=== PATIENT | female | born 1985 | race Caucasian/White ===

== ENCOUNTER 2017-09-15 17:50 | Emergency (ER) | payer SELFPAY ==
--- NOTE | 2017-09-15 19:11 | ER ---
Nurse's Notes [facility] Name: Merlene Lawson Age: 32 yrs Sex: Female : 1985 Arrival Date: 09/15/2017 Time: 17:51 Bed 18 Private MD: Diagnosis: Cutaneous abscess of right lower limb Presentation: 09/15 17:52 Presenting complaint: EMS states: called for spider bite to left thigh. Pt reports kb1 started on Wednesday, feeling worse today. Transition of care: patient was not received from another setting of care. Onset of symptoms was September 12, 2017. Care prior to arrival: None. 17:52 Method Of Arrival: EMS: [facility] kb1 17:52 Acuity: ELLY 4 kb1 Triage Assessment: 18:01 General: Appears unkempt, Behavior is restless. Pain: Complains of pain in left upper kb1 thigh. Neuro: Level of Consciousness is awake, alert, obeys commands, Oriented to person, place, time, situation. Cardiovascular: Patient's skin is warm and dry. Respiratory: Airway is patent Respiratory effort is even, unlabored, Respiratory pattern is regular, symmetrical. GI: No signs and/or symptoms were reported involving the gastrointestinal system. GI: Reports nausea. : No signs and/or symptoms were reported regarding the genitourinary system. 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 Screenin:07 Abuse screen: Denies threats or abuse. Nutritional screening: No deficits noted. kb1 Tuberculosis screening: No symptoms or risk factors identified. Fall Risk None identified. Assessment: 18:07 Reassessment: see triage assessment. Derm: Abscess located on left upper thigh is hot kb1 to touch, is red, Pt reports that she was bit by a spider on Wednesday, area began to drain today after opening up area. 19:47 Reassessment: Patient appears in no apparent distress at this time. Patient and/or kb1 family updated on plan of care and expected duration. Pain level reassessed. Patient is alert, oriented x 3, equal unlabored respirations, skin warm/dry/pink. 20:10 Reassessment: Patient appears in no apparent distress at this time. Patient and/or kb1 family updated on plan of care and expected duration. Pain level reassessed. Patient is alert, oriented x 3, equal unlabored respirations, skin warm/dry/pink. Patient states feeling better. Vital Signs: 18:01 BP 125 / 85; Pulse 105; Resp 20; Temp 99.7; Pulse Ox 98% ; Pain 10/10; kb1 19:40 BP 120 / 65; Pulse 98; Resp 20; Pulse Ox 99% ; kb1 ED Course: 17:51 Patient arrived in ED. kb1 17:54 Triage completed. kb1 18:01 Arm band placed on. kb1 18:06 [facility] Azul [facility]-C [facility]. snw 18:06 Slava Schmitt MD is Attending Physician. snw 18:07 Patient has correct armband on for positive identification. Bed in low position. Call kb1 light in reach. 18:07 No provider procedures requiring assistance completed. kb1 19:31 Lou Resendez, RN is Primary Nurse. kb1 19:48 Wound care: to abscess cleaned with hibiclens, bandaid applied to area. kb1 20:24 Patient did not have IV access during this emergency room visit. kb1 Administered Medications: 19:46 Drug: TORadol 60 mg Route: IM; Site: left deltoid; kb1 20:22 Follow up: Response: Pain is decreased kb1 19:46 Drug: Hibiclens 4 % 1 application Route: Topical; Site: left thigh; kb1 19:47 Drug: Doxycycline 100 mg Route: PO; kb1 20:21 Follow up: Response: No adverse reaction kb1 19:47 Drug: Pepcid 20 mg Route: PO; kb1 20:22 Follow up: Response: No adverse reaction kb1 Outcome: 19:11 Discharge ordered by . snw 20:24 Discharged to home ambulatory. kb1 20:24 Condition: improved 20:24 Discharge instructions given to patient, Instructed on discharge instructions, follow up and referral plans. medication usage, Demonstrated understanding of instructions, follow-up care, medications, Prescriptions given X 2. 20:25 Patient left the ED. kb1 Signatures: Raya Azul FNP-C PRODUCT EXAMINER-Lou John, RN RN kb1
--- NOTE | 2017-09-15 19:12 | EDPHYS ---
Physician Documentation [facility] Name: Merlene Lawson Age: 32 yrs Sex: Female : 1985 Arrival Date: 09/15/2017 Time: 17:51 Bed 18 Private MD: ED Physician Slava Schmitt HPI: 09/15 19:09 This 32 yrs old Female presents to ER via EMS with complaints of spider bite. snw 19:09 The patient presents with cellulitis of the right hamstring. Description: The affected snw area is small, moderate sized, well demarcated, draining. Onset: The symptoms/episode began/occurred gradually, 5 day(s) ago, and became persistent. Possible cause(s): unknown. Severity of symptoms: At their worst the symptoms were moderate. It is unknown whether or not the patient has had similar symptoms in the past. It is unknown whether or not the patient has recently seen a physician. 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 ROS: 19:07 Constitutional: Negative for fever, chills, and weight loss, Eyes: Negative for injury, snw pain, redness, and discharge, ENT: Negative for injury, pain, and discharge, Neck: Negative for injury, pain, and swelling, Cardiovascular: Negative for chest pain, palpitations, and edema, Respiratory: Negative for shortness of breath, cough, wheezing, and pleuritic chest pain, Abdomen/GI: Negative for abdominal pain, nausea, vomiting, diarrhea, and constipation, Back: Negative for injury and pain, : Negative for injury, bleeding, discharge, and swelling, MS/Extremity: Negative for injury and deformity, Neuro: Negative for headache, weakness, numbness, tingling, and seizure. 19:07 Skin: Positive for abscess, erythema, of the right leg, area "smells bad". Exam: 19:07 Constitutional: This is a well developed, obese patient who is awake, alert, and in no snw acute distress. Head/Face: Normocephalic, atraumatic. Eyes: Pupils equal round and reactive to light, extra-ocular motions intact. Lids and lashes normal. Conjunctiva and sclera are non-icteric and not injected. Cornea within normal limits. Periorbital areas with no swelling, redness, or edema. ENT: Nares patent. No nasal discharge, no septal abnormalities noted. Tympanic membranes are normal and external auditory canals are clear. Oropharynx with no redness, swelling, or masses, exudates, or evidence of obstruction, uvula midline. Mucous membranes moist. Neck: Trachea midline, no thyromegaly or masses palpated, and no cervical lymphadenopathy. Supple, full range of motion without nuchal rigidity, or vertebral point tenderness. No Meningismus. Chest/axilla: Normal chest wall appearance and motion. Nontender with no deformity. No lesions are appreciated. Cardiovascular: Regular rate and rhythm with a normal S1 and S2. No gallops, murmurs, or rubs. Normal PMI, no JVD. No pulse deficits. Respiratory: Lungs have equal breath sounds bilaterally, clear to auscultation and percussion. No rales, rhonchi or wheezes noted. No increased work of breathing, no retractions or nasal flaring. Abdomen/GI: Soft, non-tender, with normal bowel sounds. No distension or tympany. No guarding or rebound. No evidence of tenderness throughout. Back: No spinal tenderness. No costovertebral tenderness. Full range of motion. MS/ Extremity: Pulses equal, no cyanosis. Neurovascular intact. Full, normal range of motion. Neuro: Awake and alert, GCS 15, oriented to person, place, time, and situation. Cranial nerves II-XII grossly intact. Motor strength 5/5 in all extremities. Sensory grossly intact. Cerebellar exam normal. Normal gait. Psych: Awake, alert, with orientation to person, place and time. Behavior, mood, and affect are within normal limits. 19:07 Skin: Appearance: normal except for affected area, abscess, that is moderate sized, of the right hamstring, with drainage, that is purulent. Vital Signs: 18:01 BP 125 / 85; Pulse 105; Resp 20; Temp 99.7; Pulse Ox 98% ; Pain 10/10; kb1 19:40 BP 120 / 65; Pulse 98; Resp 20; Pulse Ox 99% ; kb1 MDM: 18:06 Patient medically screened. snw 19:01 Data reviewed: vital signs, nurses notes. Data interpreted: Pulse oximetry: on room air snw is 98 %. Interpretation: normal. Counseling: I had a detailed discussion with the patient and/or guardian regarding: the historical points, exam findings, and any diagnostic results supporting the discharge/admit diagnosis. 19:02 Awaiting: pt in bathroom. snw Administered Medications: 19:46 Drug: TORadol 60 mg Route: IM; Site: left deltoid; kb1 20:22 Follow up: Response: Pain is decreased kb1 19:46 Drug: Hibiclens 4 % 1 application Route: Topical; Site: left thigh; kb1 19:47 Drug: Doxycycline 100 mg Route: PO; kb1 20:21 Follow up: Response: No adverse reaction kb1 19:47 Drug: Pepcid 20 mg Route: PO; kb1 20:22 Follow up: Response: No adverse reaction kb1 Disposition: 09/15/17 19:11 Discharged to Home. Impression: Cutaneous abscess of right lower limb. - Condition is Stable. - Discharge Instructions: Abscess, Sitz Bath. - Prescriptions for Doxycycline Hyclate 100 mg Oral Tablet - take 1 tablet by ORAL route every 12 hours; 20 tablet. Diclofenac Sodium 75 mg Oral Tablet Sustained Release - take 1 tablet by ORAL route 2 times per day; 30 tablet. - Work release form, Medication Reconciliation Form, Thank You Letter, Antibiotic Education, Prescription Opioid Use form. - Follow up: Private Physician; When: 2 - 3 days; Reason: Recheck today's complaints, Continuance of care, Re-evaluation by your physician. Follow up: Emergency Department; When: As needed; Reason: Worsening of condition. Addendum: 09/17/2017 07:41 Co-signature as Attending Physician, Slava Schmitt MD I agree with the assessment and w a plan of care. Signatures: Raya Azul, ASTRONAUT MISSION SPECIALIST-C ASTRONAUT MISSION SPECIALIST-Csnw Slava Schmitt MD MD wa Brown, Kristina RN RN kb1
[2017-09-15] MEDS ORDERED: FAMOTIDINE 20 MG TAB ONE (19:36)
[2017-09-15] MEDS ORDERED: KETOROLAC 30 MG/ML INJ ONE (19:36)
[2017-09-15] MEDS ORDERED: DOXYCYCLINE 100 MG CAP PO ONE (19:37)
[2017-09-15 20:31] VITALS: TEMP 99.7
[2017-09-15 20:32] VITALS: BP 120/65; O2SAT 99
== END 2017-09-15 20:24 | disposition home or self-care (01) ==
LOC: ER 17:50
DX: L03.115 Cellulitis of right lower limb (principal); I10 Essential (primary) hypertension; F41.9 Anxiety disorder, unspecified; F32.9 Major depressive disorder, single episode, unspecified; Z88.0 Allergy status to penicillin; Z88.1 Allergy status to other antibiotic agents
CPT/HCPCS: 96372; 99284

== ENCOUNTER 2020-01-26 15:58 | Emergency (ER) | payer SELFPAY ==
--- OUTSIDE RECORDS SUMMARY | 2020-01-26 16:00 | XMS REPORT | Clinical Summary ---
:1985 Author Organization [facility] [facility] Address [address] [place] [id number] Care Team Providers Name Role Phone Asked, Pcp Primary Care Provider Unavailable Allergies No Known Allergies Medications Not on file Active Problems Not on file Social History Tobacco Use Types Packs/Day Years Used Date Never Smoker Smokeless Tobacco: Never Used Sex Assigned at Date Recorded Not on file Job Start Date Occupation Industry Not on file Not on file Not on file Travel History Travel Start Travel End No recent travel history available. 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
[2020-01-26 16:52] LABS: Absolute Lymphocytes (CBC) 1.8 K/uL (0.7-4.9); Basophils % 0.4 % (0-1.3); Hematocrit 35.4 % (36.0-45.0); Lymphocytes % 20.3 % (15.3-44.8); MPV 8.2 fL (7.6-11.3); RBC Red Blood Cell Count 4.37 M/uL (3.86-4.86)
[2020-01-26 16:55] LABS: Barbiturates NEGATIVE (NEGATIVE); Benzodiazepines NEGATIVE (NEGATIVE); Cocaine NEGATIVE (NEGATIVE); METHAMPHETAM POSITIVE (NEGATIVE); Methadone NEGATIVE (NEGATIVE); Opiates NEGATIVE (NEGATIVE); Phencyclidine NEGATIVE (NEGATIVE); THC Cannibis NEGATIVE (NEGATIVE)
[2020-01-26 16:55] LABS: Protime INR 1.01
[2020-01-26 16:58] LABS: Urine Blood TRACE (NEG); Urine Glucose NEGATIVE (NEG); Urine Protein 2+ (NEG); Urine Specific Gravity >1.030 (1.005-1.030); Urine pH 5.5 (5.0-7.0)
[2020-01-26] MEDS ORDERED: KETOROLAC 30 MG/ML INJ ONE (17:02)
[2020-01-26] MEDS ORDERED: DIPHENHYDRAMINE 50 MG/ML VIAL ONE (17:02)
[2020-01-26] MEDS ORDERED: NA CHLORIDE 0.9% 500 ML ONE (17:02)
[2020-01-26 17:10] LABS: ALT/SGPT 22 U/L (12-78); AST/SGOT 15 U/L (15-37); Albumin 3.3 g/dL (3.4-5.0); Alkaline Phosphatase 93 U/L (45-117); BUN Blood Urea Nitrogen 18 mg/dL (7-18); Bicarbonate 26 mmol/L (21-32); Bilirubin Direct < 0.1 mg/dL (0-0.2); Bilirubin Total 0.2 mg/dL (0.2-1.0); Glucose Level 90 mg/dL (74-106); NT PRO-BNP 79 pg/mL (<125); Potassium 3.6 mmol/L (3.5-5.1); Protein, Total 7.2 g/dL (6.4-8.2); Sodium Level 144 mmol/L (136-145); Troponin (Emerg Dept Use Only) < 0.02 ng/mL (0.0-0.045)
--- NOTE | 2020-01-26 17:43 | RAD REPORT ---
EXAM DESCRIPTION: [facility] Single View01/26/2020 5:21 pm CLINICAL HISTORY: Chest pain COMPARISON: 2017 FINDINGS: The lungs appear clear of acute infiltrate. The heart is normal size IMPRESSION: No acute abnormalities displayed
--- NOTE | 2020-01-26 18:01 | ER ---
Nurse's Notes [facility] Name: Merlene Lawson Age: 34 yrs Sex: Female : 1985 Arrival Date: 01/26/2020 Time: 15:59 Bed 20 Private MD: Diagnosis: Other chest pain;Urinary tract infection, site not specified Presentation: 01/25 16:05 Chief complaint: Patient states: SOB and CP began after getting arrested today. Anxiety ll1 attack wont stop. Coronavirus screen: Client denies travel out of the [place] in the last 14 days. At this time, the client does not indicate any symptoms associated with coronavirus-19. Ebola Screen: Patient denies travel to an Ebola-affected area in the 21 days before illness onset. Initial Sepsis Screen: Does the patient meet any 2 criteria? HR > 90 bpm. Risk Assessment: Do you want to hurt yourself or someone else? Patient reports no desire to harm self or others. Onset of symptoms was January 26, 2020. 16:05 Method Of Arrival: Law Enforcement: [facility] 16:05 Acuity: ELLY 3 ll1 16:15 Initial Sepsis Screen: Does the patient have a suspected source of infection? No. bp Patient's initial sepsis screen is negative. Triage Assessment: 16:15 General: Appears distressed, obese, Behavior is cooperative, appropriate for age, bp agitated, anxious. Pain: Denies pain. EENT: No deficits noted. Neuro: Level of Consciousness is awake, alert, obeys commands, Oriented to person, place, time, situation, Appropriate for age. Cardiovascular: No deficits noted. Respiratory: No deficits noted. GI: No signs and/or symptoms were reported involving the gastrointestinal system. : No signs and/or symptoms were reported regarding the genitourinary system. Derm: No deficits noted. Musculoskeletal: No deficits noted. Historical: - Allergies: 16:04 Augmentin; ll1 16:04 PENICILLINS; ll1 - Home Meds: 18:13 gabapentin 400 mg Oral cap 1 cap twice a day [Active]; lisinopril Oral [Active]; bp - PMHx: 16:04 Anxiety; Depression; GERD; Hernia; Hypertension; ll1 - PSHx: 16:04 Cholecystectomy; ; ll1 - Immunization history:: Flu vaccine is not up to date. - Social history:: Smoking status: Patient denies any tobacco usage or history of. Patient/guardian denies using alcohol, IV drugs. Screenin:20 Abuse screen: Denies threats or abuse. Denies injuries from another. Pt is in police ss custody. Nutritional screening: No deficits noted. Tuberculosis screening: Never had TB. 16:20 Fall Risk None identified. bp Assessment: 16:15 General: Appears obese, Behavior is cooperative, anxious, Denies fever, feeling ill, ss fatigue, chills. Pain: Complains of pain in chest Pain does not radiate. Quality of pain is described as Pt states, "It comes and goes when I get scared of my surroundings." Pain began just after being detained by police. Is intermittent. Neuro: Level of Consciousness is awake, alert, obeys commands, Oriented to person, place, time, situation. Cardiovascular: Capillary refill < 3 seconds is brisk in bilateral fingers. Respiratory: Airway is patent Respiratory effort is even, unlabored, Respiratory pattern is regular, symmetrical. GI: Patient currently denies diarrhea, nausea, vomiting. : No signs and/or symptoms were reported regarding the genitourinary system. EENT: Oral mucosa is moist. Derm: Skin is intact, is healthy with good turgor, Skin is dry, Skin is pink, warm \\T\\ dry. normal. 16:20 Reassessment: Pt ambulated with steady gait to restroom to give urine specimen. ss 18:11 Reassessment: PT D/C WITH NIKKI, DX WITH UTI AND ANXIETY. bp Vital Signs: 16:05 BP 153 / 92; Pulse 120; Resp 20; Temp 97.7; Pulse Ox 100% ; Pain 10/10; ll1 18:00 BP 126 / 87; Pulse 100; Resp 20; Temp 98; Pulse Ox 99% ; bp ED Course: 15:59 Patient arrived in ED. ag5 16:06 Triage completed. ll1 16:06 Arm band placed on. ll1 16:11 Arnoldo Marion PA is PHCP. cp 16:11 Arnoldo Figueroa MD is Attending Physician. cp 16:20 Patient has correct armband on for positive identification. Bed in low position. Call ss light in reach. museum educator on. Pulse ox on. NIBP on. 16:20 Patient maintains SpO2 saturation greater than 95% on room air. ss 16:27 Urine collected: clean catch specimen, cloudy. tm3 16:28 Urine collected:. tm3 16:41 Inserted saline lock: 20 gauge in right antecubital area, using aseptic technique. ss Blood collected. 16:44 EKG done, by ED staff. tm3 16:47 Jo-Ann Hayden, RN is Primary Nurse. ss 17:21 XRAY Chest (1 view) In Process Unspecified. EDMS 17:57 US Extremity Venous Unilateral Ltd In Process Unspecified. EDMS 18:12 No provider procedures requiring assistance completed. IV discontinued, intact, bp bleeding controlled, No redness/swelling at site. Pressure dressing applied. Administered Medications: 16:30 Drug: Benadryl 12.5 mg Route: IVP; Site: right antecubital; ss 18:00 Follow up: Response: Marked relief of symptoms bp 16:30 Drug: NS 0.9% 500 ml Volume: 500 ml; Route: IV; Rate: 1 bolus; Site: right antecubital; ss 16:30 Drug: TORadol - Ketorolac 15 mg Route: IVP; Site: right antecubital; ss 18:01 Follow up: Response: Marked relief of symptoms bp Outcome: 18:00 Discharge ordered by MD. cp 18:12 Discharged to Law Enforcement bp 18:12 Condition: stable 18:12 Discharge instructions given to patient, police, Instructed on discharge instructions, follow up and referral plans. medication usage, Demonstrated understanding of instructions, follow-up care, medications, Prescriptions given X 2. 18:16 Patient left the ED. bp Signatures: Dispatcher [employer] Baljinder Billy tm3 Jo-Ann Hayden, RN RN ss Arnoldo Marion, JAYLA PA David Giordano RN RN bp Crissy Aburto ag5 Jose Chong RN RN ll1
--- NOTE | 2020-01-26 18:01 | EDPHYS ---
Physician Documentation [facility] Name: Merlene Lawson Age: 34 yrs Sex: Female : 1985 Arrival Date: 01/26/2020 Time: 15:59 Bed 20 Private MD: ED Physician Arnoldo Figueroa HPI: 01/25 16:20 This 34 yrs old Female presents to ER via Law Enforcement with complaints of cp Chest Pain. 16:20 The patient or guardian reports chest pain that is located primarily in the substernal cp area. 16:20 The pain does not radiate. cp 16:20 Associated signs and symptoms: Pertinent positives: lower extremity pain, lower cp extremity swelling, shortness of breath. 16:20 The chest pain is described as sharp. cp 16:20 Duration: The patient or guardian reports a single episode, that is still ongoing. cp Historical: - Allergies: 16:04 Augmentin; ll1 16:04 PENICILLINS; ll1 - Home Meds: 18:13 gabapentin 400 mg Oral cap 1 cap twice a day [Active]; lisinopril Oral [Active]; bp - PMHx: 16:04 Anxiety; Depression; GERD; Hernia; Hypertension; ll1 - PSHx: 16:04 Cholecystectomy; ; ll1 - Immunization history:: Flu vaccine is not up to date. - Social history:: Smoking status: Patient denies any tobacco usage or history of. Patient/guardian denies using alcohol, IV drugs. ROS: 16:25 Eyes: Negative for injury, pain, redness, and discharge. cp 16:25 Constitutional: Negative for body aches, chills, fever, poor PO intake. 16:25 ENT: Negative for ear pain, sore throat, difficulty swallowing, difficulty handling secretions. 16:25 Cardiovascular: Positive for chest pain, Negative for edema, palpitations. 16:25 Respiratory: Positive for shortness of breath, Negative for cough, wheezing. 16:25 Abdomen/GI: Negative for abdominal pain, vomiting, diarrhea, constipation. 16:25 Back: Negative for pain at rest, pain with movement. 16:25 Skin: Negative for rash. 16:25 Neuro: Negative for altered mental status, headache, numbness, syncope, weakness. 16:25 All other systems are negative. Exam: 16:55 ECG was reviewed by the Attending Physician. cp 16:55 Head/Face: Normocephalic, atraumatic. cp 16:55 Constitutional: The patient appears in no acute distress, alert, awake, non-diaphoretic, non-toxic, well developed, well nourished, obese. 16:55 Eyes: Periorbital structures: appear normal, Conjunctiva: normal, no exudate, no injection, Sclera: no appreciated abnormality, Lids and lashes: appear normal, bilaterally. 16:55 ENT: External ear(s): are unremarkable, Nose: is normal, Mouth: Lips: moist, Oral mucosa: moist, Posterior pharynx: is normal, airway is patent, no erythema, no exudate. 16:55 Neck: ROM/movement: is normal, is supple, without pain, no range of motions limitations. 16:55 Chest/axilla: Inspection: normal, Palpation: crepitus, is not appreciated, tenderness, that is moderate, of the mid-sternal area. 16:55 Cardiovascular: Rate: tachycardic, Rhythm: regular, JVD: is not appreciated. 16:55 Respiratory: the patient does not display signs of respiratory distress, Respirations: labored breathing, is not present, shallow respirations, that is mild, Breath sounds: are clear throughout, no decreased breath sounds, no stridor, no wheezing. 16:55 Abdomen/GI: Inspection: abdomen appears normal, Palpation: abdomen is soft and non-tender, in all quadrants. 16:55 Back: pain, is absent, ROM is normal. 16:55 Musculoskeletal/extremity: Extremities: grossly normal except: noted in the left lower leg: swelling, tenderness. 16:55 Neuro: Orientation: to person, place \T\ time. Mentation: is normal, Motor: moves all fours, strength is normal. 16:55 Skin: cellulitis, is not appreciated, no rash present. cp Vital Signs: 16:05 BP 153 / 92; Pulse 120; Resp 20; Temp 97.7; Pulse Ox 100% ; Pain 10/10; ll1 18:00 BP 126 / 87; Pulse 100; Resp 20; Temp 98; Pulse Ox 99% ; bp MDM: 16:12 Patient medically screened. jim 16:30 Differential diagnosis: abnormal EKG, acute myocardial infarction, acute pericarditis, cp anxiety, chest wall pain, myocarditis, pleurisy, pneumonia, pulmonary embolus. 18:00 Data reviewed: vital signs, nurses notes, lab test result(s), EKG, radiologic studies, cp plain films, I have discussed the patient's presentation/case with the attending Emergency Department Physician; and as a result, I will discharge patient. 18:00 Test interpretation: by ED physician or midlevel provider: ECG. Counseling: I had a cp detailed discussion with the patient and/or guardian regarding: the historical points, exam findings, and any diagnostic results supporting the discharge/admit diagnosis, lab results, radiology results, to return to the emergency department if symptoms worsen or persist or if there are any questions or concerns that arise at home. Response to treatment: the patient's symptoms have markedly improved after treatment. ED course: VSS. Pain markedly improved, patient observed resting in exam room. Will discharge into custody of law enforcement. 01/25 16:15 Order name: Basic Metabolic Panel; Complete Time: 17:13 01/25 17:13 Interpretation: Normal except: CL 111; GFR 63. 01/25 16:15 Order name: CBC with Diff; Complete Time: 17:13 01/25 17:13 Interpretation: Normal except: HGB 11.9; HCT 35.4; RDW 15.7. 01/25 16:15 Order name: LFT's; Complete Time: 17:13 01/25 17:13 Interpretation: Normal except: ALB 3.3; GLOB 3.9; A/G 0.8. 01/25 16:16 Order name: Magnesium; Complete Time: 17:13 01/25 16:16 Order name: NT PRO-BNP; Complete Time: 17:13 01/25 16:16 Order name: PT-INR; Complete Time: 17:13 01/25 16:16 Order name: Troponin (emerg Dept Use Only); Complete Time: 17:13 01/25 17:38 Interpretation: Reviewed. 01/25 16:16 Order name: XRAY Chest (1 view); Complete Time: 17:47 01/25 17:47 Interpretation: Report review. 01/25 16:16 Order name: UDS; Complete Time: 17:13 01/25 17:37 Interpretation: Normal except: METHAMPHETAMINE POSITIVE. 01/25 16:16 Order name: D-Dimer; Complete Time: 17:13 cp 01/25 16:16 Order name: US Extremity Venous Unilateral Ltd 01/25 16:36 Order name: Urine Dipstick--Ancillary (enter results); Complete Time: 17:13 bd 01/25 17:37 Interpretation: Normal except: UBLD TRACE; UPROT 2+; U NIT POSITIVE; UESTR TRACE. cp 01/25 16:36 Order name: Urine --Ancillary (enter results); Complete Time: 17:13 bd 01/25 17:59 Order name: Urine Culture 01/25 16:16 Order name: EKG; Complete Time: 16:16 cp 01/25 16:16 Order name: Cardiac monitoring; Complete Time: 16:40 cp 01/25 16:16 Order name: EKG - Nurse/Tech; Complete Time: 16:40 cp 01/25 16:16 Order name: IV Saline Lock; Complete Time: 16:41 cp 01/25 16:16 Order name: Labs collected and sent; Complete Time: 16:41 cp 01/25 16:16 Order name: O2 Per Protocol; Complete Time: 16:41 cp 01/25 16:16 Order name: O2 Sat Monitoring; Complete Time: 16:41 cp EC:55 Rate is 110 beats/min. Rhythm is regular. TN interval is normal. QRS interval is cp normal. QT interval is normal. T waves are Inverted in lead aVR. Interpreted by me. Reviewed by me. Administered Medications: 16:30 Drug: Benadryl 12.5 mg Route: IVP; Site: right antecubital; ss 18:00 Follow up: Response: Marked relief of symptoms bp 16:30 Drug: NS 0.9% 500 ml Volume: 500 ml; Route: IV; Rate: 1 bolus; Site: right antecubital; ss 16:30 Drug: TORadol - Ketorolac 15 mg Route: IVP; Site: right antecubital; ss 18:01 Follow up: Response: Marked relief of symptoms bp Disposition: 01/26/20 18:00 Discharged to Home. Impression: Other chest pain, Urinary tract infection, site not specified. - Condition is Stable. - Discharge Instructions: Nonspecific Chest Pain, Urinary Tract Infection, Adult. - Prescriptions for Ibuprofen 800 mg Oral Tablet - take 1 tablet by ORAL route every 8 hours As needed take with food; 30 tablet. Bactrim DS 800- 160 mg Oral Tablet - take 1 tablet by ORAL route every 12 hours for 7 days; 14 tablet. - Medication Reconciliation Form, Thank You Letter, Antibiotic Education, Prescription Opioid Use form. - Follow up: Private Physician; When: 2 - 3 days; Reason: Recheck today's complaints. - Problem is new. - Symptoms have improved. Addendum: 01/28/2020 09:02 Co-signature as Attending Physician, Arnoldo Figueroa MD I agree with the assessment and c forte plan of care. Signatures: Dispatcher [employer] EDMT Arnoldo Figueroa MD MD cha Smirch, Shelby, RN RN ss Arnoldo Marion PA PA David Giordano RN RN Jose Morris RN RN ll1 Corrections: (The following items were deleted from the chart) 01/25 18:16 18:00 01/26/2020 18:00 Discharged to Home. Impression: Other chest pain; Urinary tract bp infection, site not specified. Condition is Stable. Forms are Medication Reconciliation Form, Thank You Letter, Antibiotic Education, Prescription Opioid Use. Follow up: Private Physician; When: 2 - 3 days; Reason: Recheck today's complaints. Problem is new. Symptoms have improved. cp 01/27 16:01/25 16:10 Constitutional: Negative for body aches, chills, fever, poor PO intake, cp cp 01/27 16:01/25 16:10 Cardiovascular: Positive for chest pain, Negative for edema, palpitations, cp cp 01/27 16:01/25 16:10 Respiratory: Positive for shortness of breath, Negative for cough, cp wheezing, cp 01/27 16:01/25 16:10 Abdomen/GI: Negative for abdominal pain, vomiting, diarrhea, constipation, cp cp 01/27 16:01/25 16:10 Eyes: Negative for injury, pain, redness, and discharge, cp cp 01/27 16:01/25 16:10 ENT: Negative for ear pain, sore throat, difficulty swallowing, difficulty cp handling secretions, cp 01/27 16:01/25 16:10 Back: Negative for pain at rest, pain with movement, cp cp 01/27 16:01/25 16:10 Skin: Negative for rash, cp cp 01/27 1601/25 16:10 Neuro: Negative for altered mental status, headache, numbness, syncope, cp weakness, cp 01/27 16:01/25 16:10 All other systems are negative, cp cp
--- NOTE | 2020-01-26 18:11 | RAD REPORT ---
EXAM DESCRIPTION: USExtremtung Venous Uni Ltd01/26/2020 5:57 pm CLINICAL HISTORY: left leg pain and swelling. COMPARISON: None. FINDINGS: Left common femoral, superficial femoral, popliteal and posterior tibial veins are compre ssible and demonstrate augmentation. Doppler demonstrates good flow. IMPRESSION: No evidence of deep venous thrombosis involving the left lower extremity.
[2020-01-26] MEDS ORDERED: SMZ./TMP. 800/160 MG TABLET ONE (18:16)
== END 2020-01-26 18:16 | disposition home or self-care (01) ==
LOC: ER 15:58
DX: N39.0 Urinary tract infection, site not specified (principal); I10 Essential (primary) hypertension; F41.8 Other specified anxiety disorders; Z88.0 Allergy status to penicillin; Z88.1 Allergy status to other antibiotic agents
CPT/HCPCS: 36415; 71045; 80048; 80076; 80307; 81003; 81025; 83735; 83880; 84484; 85025; 85379; 85610; 87077; 87086; 87088; 87186; 93005; 93971; 96374; 96375; 99285; J1200; J7040

== ENCOUNTER 2020-02-24 13:05 | Emergency (ER) | payer SELFPAY ==
--- OUTSIDE RECORDS SUMMARY | 2020-02-24 13:08 | XMS REPORT | Clinical Summary ---
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
--- NOTE | 2020-02-24 15:17 | RAD REPORT ---
EXAM DESCRIPTION: RAD - Femur Left - 02/24/2020 2:41 pm CLINICAL HISTORY: Left leg pain FINDINGS: No fracture is seen
--- NOTE | 2020-02-24 15:19 | RAD REPORT ---
EXAM DESCRIPTION: Priyanka Prather Left02/24/2020 2:40 pm CLINICAL HISTORY: Left leg pain status post injury FINDINGS: No fracture is seen
--- NOTE | 2020-02-24 15:26 | EDPHYS ---
Physician Documentation [facility] Name: Merlene Lawson Age: 34 yrs Sex: Female : 1985 Arrival Date: 02/24/2020 Time: 13:10 Bed 18 Private MD: ED Physician Arnoldo Figueroa HPI: 02/23 15:06 This 34 yrs old Female presents to ER via Wheelchair with complaints of leg jmm pain. 15:06 Details of fall: The patient fell from an upright position. Onset: The symptoms/episode jmm began/occurred acutely, 1 week(s) ago. This is a 34 year old female with a history of depression, htn that presents to the ED with complaints of left leg pain, mainly lower after a fall which occurred approx 1 week ago. Patient states her dog tripped her. Patient states she landed on her left side. . Historical: - Allergies: 13:46 Augmentin; iw 13:46 PENICILLINS; iw - PMHx: 13:46 Anxiety; Depression; GERD; Hernia; Hypertension; iw - PSHx: 13:46 ; iw - Immunization history:: Adult Immunizations not up to date. - Social history:: Smoking status: . ROS: 15:06 Constitutional: Negative for fever, chills, and weight loss, Cardiovascular: Negative jmm for chest pain, palpitations, and edema, Respiratory: Negative for shortness of breath, cough, wheezing, and pleuritic chest pain. 15:06 MS/extremity: Positive for injury or acute deformity, pain. 15:06 All other systems are negative. Exam: 15:06 Constitutional: This is a well developed, well nourished patient who is awake, alert, jmm and in no acute distress. Head/Face: atraumatic. Eyes: EOMI, no conjunctival erythema appreciated ENT: Moist Mucus Membranes Neck: Trachea midline, Supple Chest/axilla: Normal chest wall appearance and motion. Cardiovascular: Regular rate and rhythm. No edema appreciated Respiratory: Normal respirations, no respiratory distress appreciated Abdomen/GI: Non distended, soft Back: Normal ROM 15:06 Musculoskeletal/extremity: FROM noted to the left knee, left hip, full dorsalis pulse, compartments are soft, NVI. 15:06 Skin: ecchymosis noted to the left lower leg. 15:06 Neuro: Orientation: is normal, Mentation: is normal, Memory: is normal. 15:06 Psych: Behavior/mood is pleasant, cooperative. Vital Signs: 13:47 BP 135 / 110; Pulse 82; Resp 16; Temp 98.0; Pulse Ox 100% on R/A; Weight 145.15 kg; iw Height 5 ft. 5 in. (165.10 cm); Pain 10/10; 15:27 BP 122 / 54; Pulse 80; Resp 17; Pulse Ox 100% ; rb1 16:04 BP 127 / 63; Pulse 81; Resp 17; Pulse Ox 99% on R/A; rb1 13:47 Body Mass Index 53.25 (145.15 kg, 165.10 cm) iw MDM: 13:30 Patient medically screened. [facility] 15:09 Data reviewed: vital signs, nurses notes. [facility] 15:25 Data reviewed: radiologic studies, plain films. Counseling: I had a detailed discussion [facility] with the patient and/or guardian regarding: the historical points, exam findings, and any diagnostic results supporting the discharge/admit diagnosis, radiology results, the need for outpatient follow up, to return to the emergency department if symptoms worsen or persist or if there are any questions or concerns that arise at home. ED course: Xrays negative. patient advised to follow up with orthopedics for reevaluation. Patient is otherwise given strict return precautions. Patient understood and agrees with the plan of care. . 02/23 13:35 Order name: Femur Left XRAY; Complete Time: 15:24 [facility] 02/23 13:35 Order name: Tib Fib Left XRAY; Complete Time: 15:24 [facility] 02/23 15:05 Order name: Thang wrap-joint: knee pain; Complete Time: 15:27 [facility] Administered Medications: No medications were administered Disposition: 02/24 07:31 Co-signature as Attending Physician, Arnoldo Figueroa MD I agree with the assessment and [facility] plan of care. Disposition: 02/24/20 15:26 Discharged to Home. Impression: Contusion of left lower leg. - Condition is Stable. - Discharge Instructions: Contusion. - Medication Reconciliation Form, Thank You Letter, Antibiotic Education, Prescription Opioid Use form. - Follow up: Private Physician; When: 2 - 3 days; Reason: Recheck today's complaints, Continuance of care, Re-evaluation by your physician. Signatures: Dispatcher [employer] EDArnoldo Nevarez MD MD cha Mickail, Joel, PA PA jmm Williams, Irene, RN RN iw Marcella Davila, RN RN rb1 Corrections: (The following items were deleted from the chart) 02/23 16:16 15:26 02/24/2020 15:26 Discharged to Home. Impression: Contusion of left lower leg. rb1 Condition is Stable. Forms are Medication Reconciliation Form, Thank You Letter, Antibiotic Education, Prescription Opioid Use. Follow up: Private Physician; When: 2 - 3 days; Reason: Recheck today's complaints, Continuance of care, Re-evaluation by your physician. artis
--- NOTE | 2020-02-24 15:26 | ER ---
Nurse's Notes [facility] Name: Merlene Lawson Age: 34 yrs Sex: Female : 1985 Arrival Date: 02/24/2020 Time: 13:10 Bed 18 Private MD: Diagnosis: Contusion of left lower leg Presentation: 02/23 13:30 Chief complaint: Patient states: fell on Wednesday, dog's leash got wrapped around her iw and she tripped but fell to left side, hit left leg on ground, has had pain, swelling, bruising since then, large hematoma noted to left garcia. Coronavirus screen: At this time, the client does not indicate any symptoms associated with coronavirus-19. Ebola Screen: Patient negative for fever greater than or equal to 101.5 degrees Fahrenheit, and additional compatible Ebola Virus Disease symptoms Patient denies exposure to infectious person. Patient denies travel to an Ebola-affected area in the 21 days before illness onset. No symptoms or risks identified at this time. Initial Sepsis Screen: Does the patient meet any 2 criteria? No. Patient's initial sepsis screen is negative. Does the patient have a suspected source of infection? No. Patient's initial sepsis screen is negative. Risk Assessment: Do you want to hurt yourself or someone else? Patient reports no desire to harm self or others. 13:30 Acuity: ELLY 4 iw 13:30 Method Of Arrival: Wheelchair iw Historical: - Allergies: 13:46 Augmentin; iw 13:46 PENICILLINS; iw - PMHx: 13:46 Anxiety; Depression; GERD; Hernia; Hypertension; iw - PSHx: 13:46 ; iw - Immunization history:: Adult Immunizations not up to date. - Social history:: Smoking status: . Screenin:30 Abuse screen: Denies threats or abuse. Nutritional screening: No deficits noted. rb1 Tuberculosis screening: No symptoms or risk factors identified. Fall Risk Fall in past 12 months (25 points). No secondary diagnosis (0 pts). No IV (0 pts). Ambulatory Aid- None/Bed Rest/Nurse Assist (0 pts). Gait- Normal/Bed Rest/Wheelchair (0 pts) Mental Status- Oriented to own ability (0 pts). Total Hadley Fall Scale indicates Low Risk Score (25-44 pts). Fall prevention measures have been instituted. Side Rails Up X 2 Placed close to Nursing Station 1:1 attendant Assigned to Pt. Frequent Obs/Assesments occuring As available Patient and Family Educated on Fall Prevention Program and strategies. Assessment: 13:30 General: Appears in no apparent distress. comfortable, Behavior is calm, cooperative. rb1 Pain: Complains of pain in left leg Pain began Sven. Neuro: Level of Consciousness is awake, alert, obeys commands, Oriented to person, place, time, situation. Cardiovascular: Capillary refill < 3 seconds. Respiratory: Airway is patent Respiratory effort is even, unlabored, Respiratory pattern is regular, symmetrical. GI: No signs and/or symptoms were reported involving the gastrointestinal system. : No signs and/or symptoms were reported regarding the genitourinary system. Derm: Bruising that is on left garcia. Derm: Hematoma noted to the left leg. Musculoskeletal: Swelling present in left leg. 14:30 Reassessment: Patient appears in no apparent distress at this time. No changes from rb1 previously documented assessment. 15:28 Reassessment: Patient appears in no apparent distress at this time. Patient and/or rb1 family updated on plan of care and expected duration. Pain level reassessed. Patient is alert, oriented x 3, equal unlabored respirations, skin warm/dry/pink. 16:14 Reassessment: Patient appears in no apparent distress at this time. No changes from rb1 previously documented assessment. Vital Signs: 13:47 BP 135 / 110; Pulse 82; Resp 16; Temp 98.0; Pulse Ox 100% on R/A; Weight 145.15 kg; iw Height 5 ft. 5 in. (165.10 cm); Pain 10/10; 15:27 BP 122 / 54; Pulse 80; Resp 17; Pulse Ox 100% ; rb1 16:04 BP 127 / 63; Pulse 81; Resp 17; Pulse Ox 99% on R/A; rb1 13:47 Body Mass Index 53.25 (145.15 kg, 165.10 cm) iw ED Course: 13:10 Patient arrived in ED. bg2 13:19 Gustavo Perez PA is PHCP. m 13:19 Arnoldo Figueroa MD is Attending Physician. [facility] 13:23 Marcella Davila, KENISHA is Primary Nurse. rb1 13:30 Patient has correct armband on for positive identification. Bed in low position. Call rb1 light in reach. Side rails up X 1. Pulse ox on. NIBP on. Warm blanket given. 13:45 Triage completed. iw 13:47 Arm band placed on. iw 14:40 Femur Left XRAY In Process Unspecified. EDMS 14:40 Tib Fib Left XRAY In Process Unspecified. EDMS 16:14 No provider procedures requiring assistance completed. Patient did not have IV access rb1 during this emergency room visit. Administered Medications: No medications were administered Outcome: 15:26 Discharge ordered by . artis 16:14 Discharged to home ambulatory. rb1 16:14 Condition: stable 16:14 Discharge instructions given to patient, Instructed on discharge instructions, follow up and referral plans. Demonstrated understanding of instructions, follow-up care, Prescriptions given X none 16:16 Patient left the ED. rb1 Signatures: Dispatcher [employer] EDMS uGstavo Perez PA PA jmm Williams, Irene, KENISHA DE Randa Gutierrez [facility] Marcella Davila, RN RN rb1
[2020-02-24 16:34] VITALS: TEMP 98; O2SAT 100
[2020-02-24 16:35] VITALS: BP 122/54
== END 2020-02-24 16:16 | disposition home or self-care (01) ==
LOC: ER 13:05
DX: S80.12XA Contusion of left lower leg, initial encounter (principal); W01.0XXA Fall on same level from slipping, tripping and stumbling without subsequent striking against object, initial encounter; Y93.01 Activity, walking, marching and hiking; Y92.9 Unspecified place or not applicable; I10 Essential (primary) hypertension; Z88.0 Allergy status to penicillin; Z88.1 Allergy status to other antibiotic agents
CPT/HCPCS: 99283

== ENCOUNTER 2020-07-02 03:19 | Emergency (ER) | payer SELFPAY ==
--- OUTSIDE RECORDS SUMMARY | 2020-07-02 03:21 | XMS REPORT | Clinical Summary ---
:1985 Author Organization [facility] Address [address] [place] [address] Care Team Providers Name Role Phone Asked, Pcp Primary Care Provider Unavailable Allergies No Known Active Allergies Medications Not on file Active Problems Not on file Social History Tobacco Use Types Packs/Day Years Used Date Never Smoker Smokeless Tobacco: Never Used Sex Assigned at Date Recorded Not on file Last Filed Vital Signs Not on file Plan of Treatment Health Maintenance Due Date Last Done Comments COVID-19 VACCINE (1 of 2) 2001 CERVICAL CANCER SCREENING 2006 INFLUENZA VACCINE 01/06/2020 Results Not on fileafter 07/02/2019 [phone] [address] y [address] (Home) [place] [address] [address] Advance Directives For more information, please contact: [phone] Type Date 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
[2020-07-02] MEDS ORDERED: IBUPROFEN 400 MG TAB ONE (03:43)
[2020-07-02] MEDS ORDERED: IBUPROFEN 200 MG TAB PO ONE (03:43)
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
[2020-07-02 04:12] VITALS: BP 145/64; TEMP 98.2; O2SAT 99
--- NOTE | 2020-07-02 07:01 | RAD REPORT ---
EXAM DESCRIPTION: RAD - Hand Right 2 View - 07/02/2020 3:43 am CLINICAL HISTORY: PAIN, primarily fifth MCP joint region COMPARISON: No comparisonsdelete select FINDINGS: No fracture is identified. There is no dislocation or periosteal reaction noted. No periar ticular spurring or erosive component. No foreign body or significant soft tissue abnormality. IMPRESSION: Negative right hand examination.
== END 2020-07-02 04:07 | disposition home or self-care (01) ==
LOC: ER 03:19
DX: S60.221A Contusion of right hand, initial encounter (principal); W20.8XXA Other cause of strike by thrown, projected or falling object, initial encounter; Y93.89 Activity, other specified; Y92.9 Unspecified place or not applicable; Z88.0 Allergy status to penicillin; Z88.1 Allergy status to other antibiotic agents; I10 Essential (primary) hypertension
CPT/HCPCS: 99284

== ENCOUNTER 2020-07-04 16:17 | Emergency (ER) | payer SELFPAY ==
--- OUTSIDE RECORDS SUMMARY | 2020-07-04 16:19 | XMS REPORT | Clinical Summary ---
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
--- NOTE | 2020-07-04 20:27 | ER ---
Nurse's Notes [facility] Name: Merlene Lawson Age: 35 yrs Sex: Female : 1985 Arrival Date: 07/04/2020 Time: 16:18 Bed Waiting Private MD: Diagnosis: Presentation: 07/04 16:20 Chief complaint: Patient states: I have bronchitis was here couple weeks ago. Checked ca1 O2 sat at the registration, 100%, Yovani breath sounds clear. IN 100bpm. 16:30 Note Pt in the restroom at this time. ca1 16:51 Chief complaint: Patient states: was sick for 1.5 weeks, my bronchitis had flared up. ca1 Got better and back to this. This time it started 2 days ago. C/O cough, SOB and loss of voice. Denies fever. Coronavirus screen: Client denies travel out of the [place] in the last 14 days. cough unrelated to allergies, shortness of breath, Client presents with at least one sign or symptom that may indicate coronavirus-19. Standard/surgical mask placed on the client. Provider contacted for isolation considerations. Ebola Screen: Patient negative for fever greater than or equal to 101.5 degrees Fahrenheit, and additional compatible Ebola Virus Disease symptoms Patient denies exposure to infectious person. Patient denies travel to an Ebola-affected area in the 21 days before illness onset. No symptoms or risks identified at this time. Initial Sepsis Screen: Does the patient meet any 2 criteria? No. Patient's initial sepsis screen is negative. Does the patient have a suspected source of infection? No. Patient's initial sepsis screen is negative. Risk Assessment: Do you want to hurt yourself or someone else? Patient reports no desire to harm self or others. Onset of symptoms was July 02, 2020. 16:51 Method Of Arrival: Ambulatory ca1 16:51 Acuity: ELLY 3 ca1 20:24 Note Registration Viktoria called pt thru phone, pt states she is at home is not coming ca1 back at this time. 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 - Social history:: Smoking status: Patient denies any tobacco usage or history of. Assessment: 16:57 Reassessment: PT refused Covid and Flu swab. ca1 Vital Signs: 16:21 Pulse 103; Resp 22 S; Pulse Ox 100% on R/A; ca1 16:51 BP 140 / 88; Pulse 95; Resp 20 S; Temp 98.1(TE); Pulse Ox 99% on R/A; Weight 156.04 kg ca1 (R); Height 5 ft. 5 in. (165.10 cm) (R); Pain 0/10; 16:51 Body Mass Index 57.24 (156.04 kg, 165.10 cm) ca1 ED Course: 16:18 Patient arrived in ED. as 16:53 Triage completed. ca1 16:55 Arm band placed on right wrist. ca1 20:00 Gustavo Perez PA is PHCP. artis 20:00 Isaiah Fuentes MD is Attending Physician. [facility] 20:24 Patient's name was called from ER lobby. No response. Unable to locate patient. Will ca1 disposition as left without being seen by a provider. Administered Medications: No medications were administered Outcome: 20:25 Patient left the ED. ca1 Signatures: Gustavo Perez PA PA jmm Martinez, Amelia as Acob, Cheryl, RN RN ca1
[2020-07-04 22:42] VITALS: BP 140/88; TEMP 98.1; O2SAT 99
== END 2020-07-04 20:25 | disposition left against medical advice (07) ==
LOC: ER 16:17
DX: J40 Bronchitis, not specified as acute or chronic (principal); Z53.21 Procedure and treatment not carried out due to patient leaving prior to being seen by health care provider; F41.9 Anxiety disorder, unspecified; F31.9 Bipolar disorder, unspecified; K21.9 Gastro-esophageal reflux disease without esophagitis; I10 Essential (primary) hypertension; F43.10 Post-traumatic stress disorder, unspecified; G47.00 Insomnia, unspecified
CPT/HCPCS: 99281

== ENCOUNTER 2022-07-23 11:31 | Emergency (ER) | payer SELFPAY ==
[2022-07-23] MEDS ORDERED: HYDROCODONE/CHLORPHEN 5 ML/OSYR ONE (13:17)
[2022-07-23] MEDS ORDERED: dexAMETHasone 10 MG/ML VIAL ONE (13:17)
[2022-07-23] MEDS ORDERED: ALBUTEROL INHALER 60 PUFF/8 GM IH ONE (13:18)
[2022-07-23 13:33] LABS: SARS-COV-2 RT PCR NEGATIVE (NEGATIVE)
--- NOTE | 2022-07-23 14:23 | RAD REPORT ---
EXAM DESCRIPTION: Richa Duckworth And Bella (2 Views)07/23/2022 2:07 pm CLINICAL HISTORY: Cough COMPARISON: 2019 FINDINGS: The lungs appear clear of acute infiltrate. The heart is normal size IMPRESSION: No acute abnormalities displayed
--- NOTE | 2022-07-23 15:24 | ER ---
Nurse's Notes [facility] Name: Merlene Lawson Age: 37 yrs Sex: Female : 1985 Arrival Date: 07/23/2022 Time: 11:34 Bed 24 Private MD: Diagnosis: Acute upper respiratory infection, unspecified Presentation: 07/23 12:23 Chief complaint: Patient states: Cough, fatigued, short of breath x 2 days, denies jl7 fever. Coronavirus screen: Vaccine status: Patient reports being unvaccinated. congestion, cough unrelated to allergies, difficulty breathing, Client presents with at least one sign or symptom that may indicate coronavirus-19. Ebola Screen: No symptoms or risks identified at this time. Initial Sepsis Screen: Does the patient meet any 2 criteria? No. Patient's initial sepsis screen is negative. Does the patient have a suspected source of infection? No. Patient's initial sepsis screen is negative. Risk Assessment: Do you want to hurt yourself or someone else? Patient reports no desire to harm self or others. Onset of symptoms was July 21, 2022. 12:23 Method Of Arrival: Ambulatory [facility] 12:23 Acuity: ELLY 4 jl7 Triage Assessment: 12:24 General: Appears in no apparent distress. uncomfortable, Behavior is calm, cooperative, jl7 appropriate for age. Pain: Complains of pain in chest soreness from coughing Pain currently is 5 out of 10 on a pain scale. Respiratory: Reports shortness of breath on exertion Onset: The symptoms/episode began/occurred gradually, the patient has mild shortness of breath. 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 - Social history:: Smoking status: Patient denies any tobacco usage or history of. Screenin:38 [facility] ED Fall Risk Assessment (Adult) History of falling in the last 3 months, kr3 including since admission No falls in past 3 months (0 pts) Confusion or Disorientation No (0 pts) Intoxicated or Sedated No (0 pts) Impaired Gait No (0 pts) Mobility Assist Device Used No (0 pt) Altered Elimination No (0 pt) Score/Fall Risk Level 0 - 2 = Low Risk Oriented to surroundings, Maintained a safe environment, Assessed \T\ reinforced patient's understanding of fall precautions, Hourly rounding (assess needs \T\ fall precautionary measures) done. Abuse screen: Denies threats or abuse. Nutritional screening: No deficits noted. Tuberculosis screening: No symptoms or risk factors identified. Assessment: 12:34 General: Appears distressed, uncomfortable, Behavior is calm, cooperative, appropriate kr3 for age. Neuro: Level of Consciousness is awake, alert, obeys commands, Oriented to person, place, time, situation. Respiratory: Airway is patent Respiratory effort is even, labored, Respiratory pattern is regular, symmetrical. GI: No signs and/or symptoms were reported involving the gastrointestinal system. : No signs and/or symptoms were reported regarding the genitourinary system. Derm: No signs and/or symptoms reported regarding the dermatologic system. Musculoskeletal: No signs and/or symptoms reported regarding the musculoskeletal system. 14:34 Reassessment: patient asking for food several times, told patient no food at this time kr3 until testing was completed. patient sitting in bed eating a bag of candy and drinking a coke. 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 14:43 Reassessment: son just arrived with food for patient. kr3 15:37 Reassessment: Patient appears in no apparent distress at this time. Patient and/or kr3 family updated on plan of care and expected duration. Pain level reassessed. Patient is alert, oriented x 3, equal unlabored respirations, skin warm/dry/pink. 15:38 Respiratory: Breath sounds are clear bilaterally. kr3 Vital Signs: 12:23 BP 136 / 96; Pulse 96; Resp 26; Temp 98.2; Pulse Ox 100% on R/A; Weight 136.08 kg; jl7 Height 5 ft. 5 in. (165.10 cm); Pain 5/10; 12:36 BP 122 / 107; Pulse 84; Resp 24; Pulse Ox 100% on R/A; kr3 13:30 BP 133 / 65; Pulse 81; Resp 20; Pulse Ox 100% ; kr3 14:40 BP 139 / 63; Pulse 80; Resp 20; Pulse Ox 100% on R/A; kr3 15:36 BP 140 / 96; Pulse 89; Resp 20; Pulse Ox 100% on R/A; kr3 12:23 Body Mass Index 49.92 (136.08 kg, 165.10 cm) jl7 ED Course: 11:34 Patient arrived in ED. rg4 11:46 Jeff Sandra NP is PHCP. pm1 11:46 Juan Manuel Goel MD is Attending Physician. pm1 12:24 Triage completed. jl7 12:24 Arm band placed on right wrist. jl7 12:34 Johnna Gutierrez, KENISHA is Primary Nurse. kr3 12:35 Bed in low position. Call light in reach. Side rails up X 1. kr3 12:48 COVID-19/FLU A+B Sent. kr3 14:09 Chest Pa And Lat (2 Views) XRAY In Process Unspecified. EDMS 15:38 No provider procedures requiring assistance completed. Patient did not have IV access kr3 during this emergency room visit. Administered Medications: 13:27 Drug: Tussionex Pennkinetic ER (chlorpheniramine-hydrocodone) Suspension 5 ml Route: PO;kr3 15:40 Follow up: Response: No adverse reaction; RASS: Alert and Calm (0) kr3 13:27 Drug: Albuterol 5 mg Route: Inhalation; kr3 15:39 Follow up: Response: No adverse reaction kr3 13:27 Drug: Decadron (dexamethasone) 10 mg Route: IM; Site: right deltoid; kr3 15:39 Follow up: Response: No adverse reaction kr3 Medication: 15:39 VIS not applicable for this client. kr3 Outcome: 15:23 Discharge ordered by . pm1 15:37 Patient left the ED. kr3 15:38 Discharged to home ambulatory. kr3 15:38 Condition: stable 15:38 Discharge instructions given to patient, Instructed on discharge instructions, follow up and referral plans. medication usage, Demonstrated understanding of instructions, follow-up care, medications, Prescriptions given X 3. 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 kr3
--- NOTE | 2022-07-23 15:24 | EDPHYS ---
Physician Documentation [facility] Name: Merlene Lawson Age: 37 yrs Sex: Female : 1985 Arrival Date: 07/23/2022 Time: 11:34 Bed 24 Private MD: ED Physician Juan Manuel Goel HPI: 07/23 13:08 This 37 yrs old Female presents to ER via Ambulatory with complaints of Cough, pm1 Breathing Difficulty. 13:08 The patient or guardian reports cough. Onset: The symptoms/episode began/occurred 2 pm1 day(s) ago. Severity of symptoms: in the emergency department the symptoms are unchanged. Modifying factors: The symptoms are alleviated by nothing, the symptoms are aggravated by nothing. Associated signs and symptoms: Pertinent positives: rhinorrhea, Pertinent negatives: ear ache, fever, nausea, sore throat, vomiting. The patient has not recently seen a physician. 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 - Social history:: Smoking status: Patient denies any tobacco usage or history of. ROS: 13:08 Constitutional: Negative for fever, chills, and weight loss. pm1 13:08 Cardiovascular: Negative for chest pain, palpitations, and edema. 13:08 Abdomen/GI: Negative for abdominal pain, nausea, vomiting, diarrhea, and constipation, Back: Negative for injury and pain, MS/Extremity: Negative for injury and deformity, Skin: Negative for injury, rash, and discoloration, Neuro: Negative for headache, weakness, numbness, tingling, and seizure. 13:08 ENT: Positive for rhinorrhea, Negative for sore throat. 13:08 Respiratory: Positive for cough, wheezing. 13:08 All other systems are negative. Exam: 13:08 Constitutional: This is a well developed, well nourished patient who is awake, alert, pm1 and in no acute distress. Head/Face: Normocephalic, atraumatic. 13:08 Back: No spinal tenderness. No costovertebral tenderness. Full range of motion. Skin: Warm, dry with normal turgor. Normal color with no rashes, no lesions, and no evidence of cellulitis. MS/ Extremity: Pulses equal, no cyanosis. Neurovascular intact. Full, normal range of motion. 13:08 Eyes: Exam is negative for acute changes, Extraocular movements: no acute changes, Conjunctiva: no acute changes, no injection. 13:08 ENT: Exam is negative for acute changes, Mouth: no acute changes, Lips: normal, moist, Oral mucosa: normal, pink and intact, moist. 13:08 Cardiovascular: Exam negative for acute changes, Rate: normal, Rhythm: regular, Pulses: no pulse deficits are appreciated. 13:08 Respiratory: Exam negative for acute changes, respiratory distress, shortness of breath, Breath sounds: bronchial sounds, that are mild. 13:08 Abdomen/GI: Exam negative for acute changes, Inspection: abdomen appears normal. 13:08 Neuro: Exam negative for acute changes, Orientation: is normal, Mentation: is normal, Motor: moves all fours, Gait: is steady, at a normal pace, without difficulty. Vital Signs: 12:23 BP 136 / 96; Pulse 96; Resp 26; Temp 98.2; Pulse Ox 100% on R/A; Weight 136.08 kg; jl7 Height 5 ft. 5 in. (165.10 cm); Pain 5/10; 12:36 BP 122 / 107; Pulse 84; Resp 24; Pulse Ox 100% on R/A; kr3 13:30 BP 133 / 65; Pulse 81; Resp 20; Pulse Ox 100% ; kr3 14:40 BP 139 / 63; Pulse 80; Resp 20; Pulse Ox 100% on R/A; kr3 15:36 BP 140 / 96; Pulse 89; Resp 20; Pulse Ox 100% on R/A; kr3 12:23 Body Mass Index 49.92 (136.08 kg, 165.10 cm) jl7 MDM: 12:41 Patient medically screened. pm1 15:23 Data reviewed: vital signs. pm1 15:23 Counseling: I had a detailed discussion with the patient and/or guardian regarding: the pm1 historical points, exam findings, and any diagnostic results supporting the discharge/admit diagnosis, lab results, radiology results, the need for outpatient follow up, to return to the emergency department if symptoms worsen or persist or if there are any questions or concerns that arise at home. 07/23 12:44 Order name: COVID-19/FLU A+B; Complete Time: 13:34 pm1 07/23 13:08 Order name: Chest Pa And Lat (2 Views) XRAY; Complete Time: 14:31 pm1 Administered Medications: 13:27 Drug: Tussionex Pennkinetic ER (chlorpheniramine-hydrocodone) Suspension 5 ml Route: PO;kr3 15:40 Follow up: Response: No adverse reaction; RASS: Alert and Calm (0) kr3 13:27 Drug: Albuterol 5 mg Route: Inhalation; kr3 15:39 Follow up: Response: No adverse reaction kr3 13:27 Drug: Decadron (dexamethasone) 10 mg Route: IM; Site: right deltoid; kr3 15:39 Follow up: Response: No adverse reaction kr3 Disposition Summary: 07/23/22 15:23 Discharge Ordered Location: Home pm1 Problem: new pm1 Symptoms: have improved pm1 Condition: Stable pm1 Diagnosis - Acute upper respiratory infection, unspecified pm1 Followup: pm1 - With: Emergency Department - When: As needed - Reason: Worsening of condition Followup: pm1 - With: Private Physician - When: 2 - 3 days - Reason: Recheck today's complaints, Continuance of care, Re-evaluation by your physician Discharge Instructions: - Discharge Summary Sheet pm1 - Upper Respiratory Infection, Adult pm1 Forms: - Medication Reconciliation Form pm1 - Thank You Letter pm1 - Antibiotic Education pm1 - Prescription Opioid Use pm1 Prescriptions: - Ventolin HFA 90 mcg/actuation Inhalation HFA aerosol inhaler - inhale 1 puff by INHALATION route every 4-6 hours As needed; 1 Inhaler; pm1 Refills: 0, Product Selection Permitted - Medrol (Wang) 4 mg Oral Tablets, Dose Pack - take 1 tablet by ORAL route as directed - follow package instructions; 1 pm1 packet; Refills: 0, Product Selection Permitted - Guaifenesin AC 10-100 mg/5 mL Oral Liquid - take 10 milliliters by ORAL route every 4 hours As needed; 240 milliliter; pm1 Refills: 0, Product Selection Permitted Signatures: Dispatcher [employer] EDJeff Vargas, COMMERCIAL CARPET INSTALLER COMMERCIAL CARPET INSTALLER pm1 Nora Stephenson, RN RN jl7 Johnna Gutierrez, KENISHA RN kr3
[2022-07-23 16:14] VITALS: TEMP 98.2; O2SAT 100
[2022-07-23 16:20] VITALS: BP 140/96
== END 2022-07-23 15:37 | disposition home or self-care (01) ==
LOC: ER 11:31
DX: J06.9 Acute upper respiratory infection, unspecified (principal); Z20.822 Contact with and (suspected) exposure to COVID-19; I10 Essential (primary) hypertension; Z88.0 Allergy status to penicillin; Z88.1 Allergy status to other antibiotic agents
CPT/HCPCS: 0240U; 71046; 96372; 99284; J1100

== ENCOUNTER 2022-10-30 13:56 | Emergency (ER) | payer OTHER, SELFPAY ==
[2022-10-30] MEDS ORDERED: predniSONE 20 MG TAB ONE (14:38)
[2022-10-30] MEDS ORDERED: ALBUTEROL 2.5 MG/3 ML NEB SOL ONE (14:38)
[2022-10-30] MEDS ORDERED: LEVALBUTEROL 0.63 MG/3 ML NEB ONE (14:38)
--- NOTE | 2022-10-30 15:21 | EDPHYS ---
Physician Documentation [facility] Name: Merlene Lawson Age: 37 yrs Sex: Female : 1985 Arrival Date: 10/30/2022 Time: 13:56 Bed 14 Private MD: ED Physician Arthur Rico HPI: 10/30 14:05 This 37 yrs old Female presents to ER via Unassigned with complaints of bs3 Cough, Chest Congestion, Headache, Diarrhea. 14:05 Patient reports her son getting sick approximately 1 week ago and then she developed bs3 cough congestion headache diarrhea she notes some difficulty breathing as well she has used albuterol in the past but forgot her inhaler she denies chest pain she denies any history of PE DVT she denies any leg swelling she has tried [id number] medicines without relief. 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 - Social history:: Smoking status: Patient denies any tobacco usage or history of. ROS: 14:05 Constitutional: Negative for fever, chills bs3 14:05 All other systems are negative. Exam: 14:05 Constitutional: This is a well developed, well nourished patient who is awake, alert, bs3 and in mild respiratory distress. Head/Face: Normocephalic, atraumatic. Eyes: Pupils equal round and reactive to light, extra-ocular motions intact. Lids and lashes normal. ENT: mmm, no posterior phyarngeal erythema Chest/axilla: Normal chest wall appearance and motion. Nontender with no deformity. No lesions are appreciated. Cardiovascular: Regular rate and rhythm with a normal S1 and S2. symmetric pulses in upper extremities Respiratory: Lungs have equal breath sounds bilaterally, she is tachypneac, rhonchi b/l MS/ Extremity: Pulses equal, no cyanosis. Neurovascular intact. Full, normal range of motion. Neuro: Awake and alert, GCS 15, oriented to person, place, time, and situation. Cranial nerves II-XII grossly intact. Motor strength 5/5 in all extremities. Sensory grossly intact. Vital Signs: 14:15 BP 116 / 98; Pulse 111; Resp 24; Temp 97.4; Pulse Ox 98% ; Weight 136.08 kg; Height 5 bp ft. 5 in. ; 14:39 BP 103 / 62; Pulse 89; Resp 20; Pulse Ox 99% on R/A; mb9 15:42 BP 112 / 69; Pulse 74; Resp 18; Pulse Ox 99% on R/A; mb9 14:15 Body Mass Index 49.92 (136.08 kg, 165.1 cm) bp MDM: 13:58 Patient medically screened. bs3 14:05 Differential Diagnosis: Obstructed Airway Bronchitis Influenza Upper Respiratory bs3 Infection Viral Syndrome Pneumonia. Data reviewed: vital signs, nurses notes. 15:12 Independent interpretation of the following test(s) in the Emergency Department X-Ray: bs3 My interpretation is no pna. 15:19 ED course: pt feeling better, breathing improved, vitals normal. bs3 10/30 14:05 Order name: XRAY Chest Pa And Lat (2 Views) bs3 Administered Medications: 14:37 Drug: DuoNeb Nebulize (3:1) (2.5 mg - 0.5 mg) 3 ml Route: Nebulizer; mb9 14:37 Drug: predniSONE PO 60 mg Route: PO; mb9 Disposition Summary: 10/30/22 15:20 Discharge Ordered Location: Home bs3 Problem: new bs3 Symptoms: have improved bs3 Condition: Stable bs3 Diagnosis - Acute upper respiratory infection, unspecified bs3 Followup: bs3 - With: Private Physician - When: 2 - 3 days - Reason: Re-evaluation by your physician Discharge Instructions: - Discharge Summary Sheet bs3 - Upper Respiratory Infection, Adult, [id number] bs3 Forms: - Work release form bs3 - Medication Reconciliation Form bs3 - Thank You Letter bs3 - Antibiotic Education bs3 - Prescription Opioid Use bs3 Prescriptions: - Tessalon Perles 100 mg Oral Capsule - take 1 capsule by ORAL route every 8 hours As needed; 15 capsule; Refills: 0, bs3 Product Selection Permitted - Prednisone 20 mg Oral Tablet - take 2 tablets by ORAL route once daily for 5 days; 10 tablet; Refills: 0, bs3 Product Selection Permitted Signatures: Dispatcher [employer] David Toussaint, RN RN bp Arthur Rico MD MD bs3 Gina Remy RN RN mb9 Corrections: (The following items were deleted from the chart) 15:13 15:05 Chest Single View+[email or web address] ordered. EDMS EDMS
--- NOTE | 2022-10-30 15:21 | ER ---
Nurse's Notes [facility] Name: Merlene Lawson Age: 37 yrs Sex: Female : 1985 Arrival Date: 10/30/2022 Time: 13:56 Bed 14 Private MD: Diagnosis: Acute upper respiratory infection, unspecified Presentation: 10/30 14:15 Chief complaint: Patient states: COUGH, DIARRHEA, CONGESTION x1 WK. Coronavirus screen: bp chills, cough unrelated to allergies, difficulty breathing, fever. Ebola Screen: No symptoms or risks identified at this time. Initial Sepsis Screen: Does the patient meet any 2 criteria? HR > 90 bpm. No. Patient's initial sepsis screen is negative. Does the patient have a suspected source of infection? Yes: Productive cough/pneumonia. Risk Assessment: Do you want to hurt yourself or someone else? Patient reports no desire to harm self or others. Onset of symptoms is unknown. 14:15 Method Of Arrival: Ambulatory bp 14:15 Acuity: ELLY 3 bp Triage Assessment: 14:19 Headache History: The patient has had previous headaches and this one is similar to bp previous episodes. General: Appears ill, obese, Behavior is calm, cooperative, appropriate for age. Pain: Complains of pain in head Pain currently is 5 out of 10 on a pain scale. Pain began 1 WK AGO Also complains of no other associated symptoms. EENT: No deficits noted. Neuro: Level of Consciousness is awake, alert, obeys commands, Oriented to Appropriate for age. Cardiovascular: Rhythm is sinus tachycardia. Respiratory: Reports cough that is Airway is patent Respiratory effort is labored, Respiratory pattern is tachypnea. GI: Reports diarrhea. : No signs and/or symptoms were reported regarding the genitourinary system. Derm: No deficits noted. Musculoskeletal: No deficits noted. 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 - Social history:: Smoking status: Patient denies any tobacco usage or history of. Screenin:38 [facility] ED Fall Risk Assessment (Adult) History of falling in the last 3 months, mb9 including since admission No falls in past 3 months (0 pts) Confusion or Disorientation No (0 pts) Intoxicated or Sedated No (0 pts) Impaired Gait No (0 pts) Mobility Assist Device Used No (0 pt) Altered Elimination No (0 pt) Score/Fall Risk Level 0 - 2 = Low Risk Oriented to surroundings, Maintained a safe environment, Educated pt \T\ family on fall prevention, incl call for assistance when getting out of bed. Abuse screen: Denies threats or abuse. Nutritional screening: No deficits noted. Tuberculosis screening: No symptoms or risk factors identified. Assessment: 14:38 Reassessment: see triage assessment. mb9 15:41 Reassessment: Patient and/or family updated on plan of care and expected duration. Pain mb9 level reassessed. Patient is alert, oriented x 3, equal unlabored respirations, skin warm/dry/pink. Patient states feeling better. Patient states symptoms have improved. Vital Signs: 14:15 BP 116 / 98; Pulse 111; Resp 24; Temp 97.4; Pulse Ox 98% ; Weight 136.08 kg; Height 5 bp ft. 5 in. ; 14:39 BP 103 / 62; Pulse 89; Resp 20; Pulse Ox 99% on R/A; mb9 15:42 BP 112 / 69; Pulse 74; Resp 18; Pulse Ox 99% on R/A; mb9 14:15 Body Mass Index 49.92 (136.08 kg, 165.1 cm) bp ED Course: 13:57 Patient arrived in ED. am2 13:58 Arthur Rico MD is Attending Physician. bs3 14:16 Triage completed. bp 14:16 Arm band placed on. bp 14:21 Gina Remy RN is Primary Nurse. mb9 14:37 Placed in gown. Bed in low position. Call light in reach. Side rails up X 1. Client mb9 placed on continuous cardiac and pulse oximetry monitoring. NIBP monitoring applied. 14:38 No provider procedures requiring assistance completed. mb9 15:13 XRAY Chest Pa And Lat (2 Views) In Process Unspecified. EDMS 15:42 Patient did not have IV access during this emergency room visit. mb9 Administered Medications: 14:37 Drug: DuoNeb Nebulize (3:1) (2.5 mg - 0.5 mg) 3 ml Route: Nebulizer; mb9 14:37 Drug: predniSONE PO 60 mg Route: PO; mb9 Medication: 14:37 VIS not applicable for this client. mb9 Outcome: 15:20 Discharge ordered by . bs3 15:42 Discharged to home ambulatory. mb9 15:42 Condition: stable 15:42 Discharge instructions given to patient, Instructed on discharge instructions, follow up and referral plans. Demonstrated understanding of instructions, follow-up care, medications, Prescriptions given X 2. 15:42 Patient left the ED. mb9 Signatures: Dispatcher [employer] EDViktoria Hanson Brian, RN RN Arthur Spann MD MD bs3 Gina Remy RN RN mb9
[2022-10-30 15:51] VITALS: TEMP 97.4
[2022-10-30 15:53] VITALS: O2SAT 99
[2022-10-30 15:54] VITALS: BP 112/69
--- NOTE | 2022-10-30 15:54 | RAD REPORT ---
EXAM DESCRIPTION: RAD - Chest Pa And Lat (2 Views) - 10/30/2022 3:11 pm CLINICAL HISTORY: COUGH COMPARISON: Chest Pa And Lat (2 Views) dated 07/23/2022; Chest Single View dated 01/26/2020; Chest Sin gle View dated 07/11/2017; Chest Single View dated 11/03/2016 TECHNIQUE: PA and lateral views of the chest were obtained. FINDINGS: The lungs are clear. Heart size is normal and central vasculature is within normal limits. No pleural effusion or pneumothorax seen. No acute bony finding noted. IMPRESSION: No acute cardiopulmonary process.
== END 2022-10-30 15:42 | disposition home or self-care (01) ==
LOC: ER 13:56
DX: J06.9 Acute upper respiratory infection, unspecified (principal); I10 Essential (primary) hypertension; Z88.0 Allergy status to penicillin; Z88.1 Allergy status to other antibiotic agents
CPT/HCPCS: 71046; 94640; 99284; J7512; J7613; J7614

== ENCOUNTER 2023-11-20 11:59 | Emergency (ER) | payer OTHER, SELFPAY ==
[2023-11-20 12:42] LABS: Absolute Eosinophils 0.1 K/uL (0-0.5); Absolute Lymphocytes (CBC) 1.9 K/uL (0.7-4.9); Absolute Monocytes 0.8 K/uL (0.1-1.3); Absolute Neutrophil 4.5 K/uL (1.8-8.0); Basophils % 0.3 % (0-1.3); Eosinophils % 1.5 % (0-4.4); Hematocrit 35.3 % (36.0-45.0); Hemoglobin 11.3 g/dL (12.0-15.0); Lymphocytes % 26.3 % (15.3-44.8); MCH 25.5 pg (27.0-35.0); MCHC 31.9 g/dL (32.0-36.0); MCV 79.9 fL (80-100); MPV 8.1 fL (7.6-11.3); Monocytes % 10.2 % (3.3-12.3); Neutrophils % 61.7 % (41.7-73.7); Platelets 292 thou/uL (152-406); RBC Red Blood Cell Count 4.42 M/uL (3.86-4.86); Red Cell Distribution Width 16.3 % (12.1-15.2)
[2023-11-20 12:47] LABS: PT Prothrombin Time 12.5 SECONDS (9.5-12.5); PTT, Activated Partial Thromb 33.5 SECONDS (24.3-36.9); Protime INR 1.14
[2023-11-20 13:06] LABS: ALT/SGPT 37 U/L (13-56); AST/SGOT 22 U/L (15-37); Albumin 3.3 g/dL (3.4-5.0); Albumin/Globulin Ratio 0.9 (1.1-1.8); Alkaline Phosphatase 91 U/L (45-117); Anion Gap 9.2 mEq/L (5.0-15.0); BUN Blood Urea Nitrogen 16 mg/dL (7-18); Bicarbonate 26 mEq/L (21-32); Bilirubin Total 0.4 mg/dL (0.2-1.0); Globulin 3.6 g/dL (2.3-3.5); Glomerular Filtration Rate 78 ml/min (=/>90); Glucose Level 105 mg/dL (74-106); Potassium 3.2 mEq/L (3.5-5.1); Protein, Total 6.9 g/dL (6.4-8.2); Sodium Level 139 mEq/L (136-145)
[2023-11-20 13:07] LABS: Bilirubin Direct < 0.2 mg/dL (0-0.2); Bilirubin Indirect, Calculated 0.2 mg/dL (0.2-0.8)
[2023-11-20] MEDS ORDERED: POTASSIUM CL SA 10 MEQ TAB PO ONE (14:22)
[2023-11-20 16:36] LABS: Specific Gravity 1.022 (1.005-1.030); Urine Bacteria None Seen /HPF (<20); Urine Bilirubin NEGATIVE (Negative); Urine Blood Negative (Negative); Urine Clarity Extremely Turbid (Clear); Urine Color Light-Yellow (Yellow); Urine Culture Reflex Order NOT NEEDED; Urine Glucose NEGATIVE (Negative); Urine Ketones TRACE (Negative); Urine Microscopic Reflex YN ORDER UMIC; Urine Mucus Slight /HPF (None Seen); Urine Nitrite NEGATIVE (Negative); Urine Protein NEGATIVE (Negative); Urine RBC <5 /HPF (None Seen); Urine Urobilinogen Normal (Normal); Urine WBC <5 /HPF (<5); Urine pH 5.5 (5.0-7.0)
[2023-11-20 16:37] LABS: Specific Gravity 1.022 (1.005-1.030)
[2023-11-20 16:39] LABS: Barbiturates NEGATIVE (NEGATIVE); Benzodiazepines NEGATIVE (NEGATIVE); Cocaine NEGATIVE (NEGATIVE); METHAMPHETAM POSITIVE (NEGATIVE); Methadone NEGATIVE (NEGATIVE); Opiates NEGATIVE (NEGATIVE); Phencyclidine NEGATIVE (NEGATIVE); THC Cannibis NEGATIVE (NEGATIVE)
--- NOTE | 2023-11-20 17:24 | RAD REPORT ---
EXAM DESCRIPTION: CT - Head Brain Wo Cont - 11/20/2023 4:57 pm CLINICAL HISTORY: Alteration of awareness/confusion COMPARISON: None TECHNIQUE: Computed axial tomography of the head was obtained. IV contrast was not requested. All CT scans are performed using dose optimization technique as appropriate and may include automated exposure control or mA/KV adjustment according to patient size. FINDINGS: An intracranial bleed is not seen The ventricles are normal in caliber No extra-axial fluid collection is noted. No significant hypodensity within the brain noted Fluid within the sinuses/ mastoids is not seen. IMPRESSION: No acute intracranial abnormality is seen If patient's symptoms persist MRI of the brain would be recommended
--- NOTE | 2023-11-20 17:33 | ER ---
Nurse's Notes [facility] Name: Merlene Lawson Age: 38 yrs Sex: Female : 1985 Arrival Date: 11/20/2023 Time: 11:59 Bed 8 Private MD: Diagnosis: Other stimulant abuse;Visual hallucinations Presentation: 11/19 12:09 Chief complaint: EMS states: called for patient hallucination, she states she only took ko1 some "vitamin gummies". Coronavirus screen: At this time, the client does not indicate any symptoms associated with coronavirus-19. Ebola Screen: No symptoms or risks identified at this time. Initial Sepsis Screen: Does the patient meet any 2 criteria? No. Patient's initial sepsis screen is negative. Does the patient have a suspected source of infection? No. Patient's initial sepsis screen is negative. Risk Assessment: Do you want to hurt yourself or someone else? Patient reports no desire to harm self or others. Onset of symptoms was November 20, 2023. 12:09 Method Of Arrival: EMS: [facility] ko1 12:09 Acuity: ELLY 3 ko1 12:09 Care prior to arrival: Glucose check: 147. ko1 Triage Assessment: 12:12 General: Appears in no apparent distress. Behavior is drowsy. Pain: Complains of pain ko1 in abdomen. EENT: No deficits noted. Neuro: Level of Consciousness is confused, Oriented to person, time. Cardiovascular: No deficits noted. Respiratory: No deficits noted. GI: No deficits noted. : No deficits noted. Derm: No deficits noted. Musculoskeletal: No deficits noted. 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 - Infectious Disease History:: Denies. - Social history:: Smoking status: Patient reports the use of cigarette tobacco products, smokes one pack cigarettes per day. Screenin:11 [facility] ED Fall Risk Assessment (Adult) History of falling in the last 3 months, ko1 including since admission No falls in past 3 months (0 pts) Confusion or Disorientation Yes (5 pts) Intoxicated or Sedated Yes (3 pts) Impaired Gait No (0 pts) Mobility Assist Device Used No (0 pt) Altered Elimination No (0 pt) Score/Fall Risk Level 3 or more points = High Risk Oriented to surroundings, Maintained a safe environment, Educated pt \\T\\ family on fall prevention, incl call for assistance when getting out of bed, Assessed \\T\\ reinforced patient's understanding of fall precautions, Provided non-skid footwear, Hourly rounding (assess needs \\T\\ fall precautionary measures) done, Used ambulatory aids as needed (educated on \\T\\ assisted with), Used gait belt as appropriate Implemented a Fall Risk Plan of Care, Apply high fall risk patient identification: yellow non skid footwear/ fall signage, Remained w/in arm's length of patient and in sight while toileting, Offered frequent toileting (1:1 observation), Remained with patient while ambulating, Utilized family, sitter, or virtual box car checker as indicated. Abuse screen: Denies threats or abuse. Denies injuries from another. Nutritional screening: No deficits noted. Tuberculosis screening: No symptoms or risk factors identified. Assessment: 12:15 Reassessment: see triage note. ko1 13:00 Reassessment: attempted to instruct patient on giving urine specimen, patient had ko1 already urinated on herself, cleaned of incontinence. 15:00 Reassessment: patient refuses straight cath. ko1 17:31 Reassessment: Patient appears in no apparent distress at this time. as6 Vital Signs: 12:09 BP 158 / 91; Pulse 80; Resp 14; Temp 98; Pulse Ox 99% ; ko1 14:00 BP 146 / 105; Pulse 72; Resp 18; Pulse Ox 96% ; as6 17:30 BP 146 / 92; Pulse 67; Resp 18 S; Pulse Ox 96% ; as6 ED Course: 12:01 Patient arrived in ED. ko1 12:01 Daphne Mckeon FNP is PHCP. jh7 12:01 Justin Mckeon MD is Attending Physician. jh7 12:07 Angeles Michele RN is Primary Nurse. ko1 12:11 Triage completed. ko1 12:12 Arm band placed on right wrist. Patient placed in an exam room, on a stretcher, on ko1 monitoring manager, on pulse oximetry, Patient notified of wait time. 12:35 Acetaminophen Sent. as6 12:35 Basic Metabolic Panel Sent. as6 12:35 CBC with Diff Sent. as6 12:35 ETOH Level Sent. as6 12:35 Hepatic Function Sent. as6 12:35 PT-INR Sent. as6 12:35 Ptt, Activated Sent. as6 12:35 Salicylate Sent. as6 12:35 Inserted saline lock: 20 gauge in right antecubital area, using aseptic technique. as6 Blood collected. 13:00 Cleaned of incontinence. ko1 13:11 Patient has correct armband on for positive identification. Allergy band placed. Fall ko1 risk band placed. Placed in gown. Bed in low position. Call light in reach. Side rails up X2. Provided Education on: na. Pulse ox on. NIBP on. Door closed. Noise minimized. Lights dimmed. Warm blanket given. Pillow given. 13:11 No provider procedures requiring assistance completed. ko1 13:18 Assisted with bedpan. ko1 13:20 Linen changed. ko1 14:30 Cleaned of incontinence. ko1 16:59 CT Head Brain wo Cont In Process Unspecified. EDMS 17:41 IV discontinued, intact, bleeding controlled, No redness/swelling at site. Pressure as6 dressing applied. Administered Medications: 14:27 Drug: Potassium Chloride PO 40 mEq PO once Route: PO; as6 15:19 Follow up: Response: No adverse reaction ko1 Medication: 13:11 VIS not applicable for this client. ko1 Outcome: 17:32 Discharge ordered by MD. khan 17:41 Discharged to home ambulatory, as6 17:41 Condition: stable 17:41 Discharge instructions given to patient, Instructed on discharge instructions, follow up and referral plans. Demonstrated understanding of instructions, follow-up care, 17:41 Patient left the ED. as6 Signatures: Dispatcher [employer] John Fuller, RN RN as6 Daphne Mckeon, APPLICATION SECURITY ENGINEER APPLICATION SECURITY ENGINEER jh7 Angeles Michele RN RN ko1 Corrections: (The following items were deleted from the chart) 12:18 12:12 Home Meds: lisinopril Oral; ko1 ko1 13:11 12:15 Neuro: ko1 ko1
--- NOTE | 2023-11-20 17:33 | EDPHYS ---
Physician Documentation [facility] Name: Merlene Lawson Age: 38 yrs Sex: Female : 1985 Arrival Date: 11/20/2023 Time: 11:59 Bed 8 Private MD: ED Physician Justin Mckeon HPI: 11/19 12:09 This 38 yrs old Female presents to ER via EMS with complaints of hallucinations. jh7 12:09 38-year-old female with a past medical history of hypertension, anemia, anxiety, and 7 bipolar disorder presents to the ER via EMS for hallucinations. Officers on the scene stated that the patient reported seeing people. Pinpoint pupils upon EMS arrival. Patient reports that she only took vitamin Gummies for her anemia.. 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 - Infectious Disease History:: Denies. - Social history:: Smoking status: Patient reports the use of cigarette tobacco products, smokes one pack cigarettes per day. ROS: 12:09 Constitutional: Per HPI jh7 Exam: 12:39 Constitutional: This is a well developed, well nourished patient who is awake, alert, jh7 and in no acute distress. Head/Face: Normocephalic, atraumatic. Eyes: Pupils equal round and reactive to light, extra-ocular motions intact. Lids and lashes normal. Conjunctiva and sclera are non-icteric and not injected. Cornea within normal limits. Periorbital areas with no swelling, redness, or edema. Neck: Trachea midline, no thyromegaly or masses palpated, and no cervical lymphadenopathy. Supple, full range of motion without nuchal rigidity, or vertebral point tenderness. No Meningismus. Cardiovascular: Regular rate and rhythm with a normal S1 and S2. No gallops, murmurs, or rubs. Normal PMI, no JVD. No pulse deficits. Respiratory: Lungs have equal breath sounds bilaterally, clear to auscultation and percussion. No rales, rhonchi or wheezes noted. No increased work of breathing, no retractions or nasal flaring. Abdomen/GI: Soft, non-tender, with normal bowel sounds. No distension or tympany. No guarding or rebound. No evidence of tenderness throughout. Back: No spinal tenderness. No costovertebral tenderness. Full range of motion. Skin: Warm, dry with normal turgor. Normal color with no rashes, no lesions, and no evidence of cellulitis. MS/ Extremity: Pulses equal, no cyanosis. Neurovascular intact. Full, normal range of motion. 12:39 Neuro: Orientation: to person, time, Mentation: confused, Motor: is normal, Sensation: is normal, 12:39 Psych: Behavior/mood is delirious, Affect is calm, Oriented to person, time, only. Patient has no thoughts/intents to harm self or others. Delusions/hallucinations are present and described as seeing people where are . Vital Signs: 12:09 BP 158 / 91; Pulse 80; Resp 14; Temp 98; Pulse Ox 99% ; ko1 14:00 BP 146 / 105; Pulse 72; Resp 18; Pulse Ox 96% ; as6 17:30 BP 146 / 92; Pulse 67; Resp 18 S; Pulse Ox 96% ; as6 MDM: 12:01 Patient medically screened. [facility] 17:30 Differential diagnosis: Substance abuse, intracranial bleed, psychosis. Data reviewed: [facility] vital signs, nurses notes, lab test result(s), EKG, radiologic studies, CT scan. I considered the following discharge prescriptions or medication management in the emergency department Medications were administered in the Emergency Department. See MAR. Independent interpretation of the following test(s) in the Emergency Department CT Scan: My interpretation is no acute findings. Care significantly affected by the following chronic conditions: Hypertension. Care significantly affected by the following Social Determinants of Health: Inadequate housing, Misuse of alcohol and/or drugs. Counseling: I had a detailed discussion with the patient and/or guardian regarding the historical points, exam findings, and any diagnostic results supporting the discharge/admit diagnosis, to return to the emergency department if symptoms worsen or persist or if there are any questions or concerns that arise at home. Response to treatment: the patient's symptoms have resolved after treatment, Alert and oriented x 4. 11/19 12:06 Order name: Acetaminophen; Complete Time: 13:54 [facility] 11/19 12:06 Order name: Basic Metabolic Panel; Complete Time: 13:54 [facility] 11/19 12:06 Order name: CBC with Diff; Complete Time: 13:54 [facility] 11/19 12:06 Order name: ETOH Level; Complete Time: 13:54 [facility] 11/19 12:06 Order name: Hepatic Function; Complete Time: 13:54 [facility] 11/19 12:06 Order name: PT-INR; Complete Time: 13:54 [facility] 11/19 12:06 Order name: Test, Urine; Complete Time: 16:52 [facility] 11/19 12:06 Order name: Ptt, Activated; Complete Time: 13:54 [facility] 11/19 12:06 Order name: Salicylate; Complete Time: 13:54 [facility] 11/19 12:06 Order name: Urinalysis w/ reflexes; Complete Time: 16:52 [facility] 11/19 12:06 Order name: Urine Drug Screen; Complete Time: 16:52 [facility] 11/19 16:10 Order name: CT Head Brain wo Cont; Complete Time: 17:26 [facility] 11/19 12:06 Order name: EKG; Complete Time: 12:07 [facility] 11/19 12:07 Order name: EKG - Nurse/Tech; Complete Time: 12:44 [facility] 11/19 12:07 Order name: IV Saline Lock; Complete Time: 12:35 [facility] 11/19 12:07 Order name: Labs collected and sent; Complete Time: 12:35 [facility] 11/19 12:07 Order name: Suicide Screening ([place]); Complete Time: 12:35 [facility] EC:39 Rate is 77 beats/min. Rhythm is regular. QRS [place] is Normal. [place] interval is normal at [facility] 134 msec. QRS interval is normal at 92 msec. QT interval is normal at 402 msec. No Q waves. T waves are Normal. No ST changes noted. Clinical impression: Normal ECG. Administered Medications: 14:27 Drug: Potassium Chloride PO 40 mEq PO once Route: PO; as6 15:19 Follow up: Response: No adverse reaction ko1 Disposition Summary: 11/20/23 17:32 Discharge Ordered Notes: Location: Home [facility] Problem: new [facility] Symptoms: have improved [facility] Condition: Stable [facility] Diagnosis - Other stimulant abuse [facility] - Visual hallucinations [facility] Followup: [facility] - With: Private Physician - When: 2 - 3 days - Reason: Recheck today's complaints Discharge Instructions: - Discharge Summary Sheet [facility] - Illegal Drug Use Information, Adult [facility] Forms: - Medication Reconciliation Form [facility] - Patient Portal Instructions [facility] - Leadership Thank You Letter [facility] Addendum: 11/23/2023 14:12 I was immediately available for consultation during this patient's visit. I did not e c2 personally see the patient or discuss the patient with the TRE. . Signatures: Dispatcher [employer] EDMS John Car RN RN as6 Daphne Mckeon, NUB CARD TENDER NUB CARD TENDER 7 [place] Michele RN RN ko1 Justin Mckeon MD MD ec2 Corrections: (The following items were deleted from the chart) 11/19 12:07 12:07 ACETAMINOPHEN+C.LAB.BRZ ordered. EDMS EDMS 12: 12:07 BASIC METABOLIC PANEL+C.LAB.BRZ ordered. EDMS EDMS 12: 12:07 CBC+H.LAB.BRZ ordered. EDMS EDMS 12: 12:07 ETHANOL+C.LAB.BRZ ordered. EDMS EDMS 12:07 12:07 HEPATIC FUNCTION+C.LAB.BRZ ordered. EDMS EDMS 12:07 12:07 PROTIME (+INR)+COAG.LAB.BRZ ordered. EDMS EDMS 12: 12:07 Test, Urine+UC.LAB.BRZ ordered. EDMS EDMS 12: 12:07 PTT, ACTIVATED+COAG.LAB.BRZ ordered. EDMS EDMS 12:07 12:07 SALICYLATE+C.LAB.BRZ ordered. EDMS EDMS 12: 12:07 Urinalysis+U.LAB.BRZ ordered. EDMS EDMS 12: 12:07 URINE DRUG SCREEN+UC.LAB.BRZ ordered. EDMS EDMS 12:18 12:12 Home Meds: lisinopril Oral; ko1 ko1 16:19 14:47 [place] ordered. [facility] as6
[2023-11-20 18:00] VITALS: BP 146/92; TEMP 98; O2SAT 96
--- NOTE | 2023-11-22 14:57 | EKG ---
Test Date: 2023-11-20 Test Time: 12:39:55 [employer]: SWATI MEASUREMENT RESULTS: Intervals: Rate: 77 NC: 134 QRSD: 92 QT: 402 QTc: 454 [place]: P: -3 NC: 134 QRS: 58 T: 48 INTERPRETIVE STATEMENTS: Normal sinus rhythm Normal ECG Compared to ECG 01/26/2020 16:42:21 Sinus tachycardia no longer present Electronically Signed On 11-22-23 14:52:10 CDT by Kevan Rush
== END 2023-11-20 17:41 | disposition home or self-care (01) ==
LOC: ER 11:59
DX: F15.10 Other stimulant abuse, uncomplicated (principal); R44.1 Visual hallucinations
CPT/HCPCS: 36415; 70450; 80048; 80076; 80143; 80179; 80307; 81001; 81025; 82077; 85025; 85610; 85730; 93005; 99284